=== PATIENT | male | born 1975 | race Two or more races ===

== ENCOUNTER 2020-07-10 01:22 | Emergency (ER) | payer SELFPAY ==
[~2020-07-10] VITALS: Ht 182.9 cm; Wt 102.1 kg
[2020-07-10 06:01] VITALS: BP 120/86
== END 2020-07-10 06:11 | disposition home or self-care (01) ==
LOC: ER 01:22
DX: L30.9 Dermatitis, unspecified (principal); Z88.1 Allergy status to other antibiotic agents

== ENCOUNTER 2024-08-06 19:41 | Emergency (ER) | payer BC, OTHER ==
[~2024-08-06] VITALS: Ht 182.9 cm; Wt 98.5 kg
[2024-08-06 19:51] VITALS: BP 141/89; PULSE 94; RESP 18; TEMP 98.2; O2SAT 97
[2024-08-06] MEDS ORDERED: CLIN1CAP70 PO (19:55)
[2024-08-06] MEDS ORDERED: ACET500T58 PO (19:55)
--- NOTE | 2024-08-06 19:55 | ED.PDOC ---
Eye-HPI HPI Comments 48-year-old male presents to ER with complaints of sore throat x 2 days. Patient reports that he has been experiencing 7/10 sore throat pain x2 days. Denies use of medications for current symptoms and presents to ER ambulatory on arrival, steady gait, in no distress. Denies fever, cough, difficulty swallowing, nausea/vomiting, shortness of breath or any further symptoms/complaints Chief Complaint: Sore Throat Time Seen by MD: 19:43 Primary Care Provider: MAHESHK Reviewed Notes: Nurses Notes, Medications, Allergies Allergies: Coded Allergies: Amoxicillin (Verified Allergy, Unknown, 07/10/20) Home Meds Active Scripts Acetaminophen (Acetaminophen) 500 Mg Tab, 500 MG PO Q4HPRN, #30 TAB 0 Refills Prov:MICHAEL SENIOR 08/06/24 Clindamycin Hcl (Clindamycin Hcl) 300 Mg Cap, 1 CAP PO QID for 7 Days, #28 CAP 0 Refills Prov:MICHAEL SENIOR 08/06/24 Information Source: Patient Past Medical History PAST MEDICAL HISTORY: Denies Surgical History: Denies all surgeries Family History Family History: Unknown Social History Smoker: Non-Smoker Alcohol: Denies ETOH Use Drugs: Denies Drug Use Lives In: Home Constitutional: denies: chills, diaphoresis, fatigue, fever, malaise, sweats, weakness, others EENTM: reports: others (As stated in HPI) Respiratory: denies: cough, hemoptysis, orthopnea, SOB at rest, shortness of breath, SOB with excertion, stridor, wheezing, others Cardiovascular: denies: chest pain, dizzy spells, diaphoresis, Dyspnea on exertion, edema, irregular heart beat, left arm pain, lightheadedness, palpitations, PND, syncope, others Gastrointestinal: denies: abdomen distended, abdominal pain, blood streaked bowels, constipated, diarrhea, dysphagia, difficulty swallowing, hematemesis, melena, nausea, poor appetite, poor fluid intake, rectal bleeding, rectal pain, vomiting, others Genitourinary: denies: burning, dysuria, flank pain, frequency, hematuria, incontinence, penile discharge, penile sore, pain, testicle pain, testicle swelling, urgency, others Neurological: denies: dizziness, fainting, headache, left sided numbness, left sided weakness, numbness, paresthesia, pre-existing deficit, right sided numbness, right sided weakness, seizure, speech problems, tingling, tremors, weakness, others Musculoskeletal: denies: back pain, gout, joint pain, joint swelling, muscle pain, muscle stiffness, neck pain, others Integumetry: denies: bruises, change in color, change in hair/nails, dryness, laceration, lesions, lumps, rash, wounds, others Allergic/Immunocompromised: denies: Difficulty Healing, Frequent Infections, Hives, Itching, others Hematologic/Lymphatic: denies: anemia, blood clots, easy bleeding, easy bruising, swollen glands, others Endocrine: denies: excessive hunger, excessive sweating, excessive thirst, excessive urination, flushing, intolerance to cold, intolerance to heat, unexplained weight gain, unexplained weight loss, others Psychiatric: denies: anxiety, bipolar disorder, depression, hopeless, panic disorder, schizophrenia, sleepless, suicidal, others Physical Exam General Appearance: No Apparent Distress HEENT: PERRL/EOMI, Pharyngeal Erythema (Mild tonsillar swelling/erythema noted bilaterally without exudates. Uvula-normal), TMs Normal Neck: Full Range of Motion, Non-Tender, Normal Respiratory: Chest Non-Tender, Lungs Clear, No Accessory Muscle Use, No Respiratory Distress, Normal Breath Sounds Cardiovascular: No Murmur, No Gallop, Regular Rate/Rhythm Breast Exam: Deferred Gastrointestinal: NOT DONE Genitalia: Deferred Pelvic: Deferred Rectal: Deferred Extremities: Normal capillary refill, Normal range of motion Neurologic: Alert, No Motor Deficits, Normal Affect, Normal Mood, No Sensory Deficits Cerebellar Function: Normal Reflexes: Normal Skin: Dry, Normal Color, Warm Lymphatic: No Adenopathy Was a procedure done? Was a procedure done?: No Sedation Sedation?: No EENT DIFF Eye: N/A Sore Throat: Epiglottitis, Mononeucleosis, Peritonsillar Abscess, URI X-Ray, Labs, Meds, VS Vital Signs Date Time Temp Pulse Resp B/P (MAP) Pulse Ox O2 Delivery O2 Flow Rate FiO2 08/06/24 19:51 98.2 94 18 141/89 (106) 97 98.2 Patient tolerating p.o. intake well and in no distress during ER visit/ prior to discharge Advised to drink plenty of fluids Advised to follow up with PCP in 1-2 days Patient verbalized understanding and agreeable with current plan of care Advised to return to ER immediately if symptoms worsen Time of 1ST Reevaluation: 19:24 Reevaluation 1ST: N/A Patient Education/Counseling: Diagnosis, Treatment, Prognosis, Need For Follow Up Family Education/Counseling: No Family Present SEPSIS Sepsis Screen Vital Signs Date Time Temp Pulse Resp B/P (MAP) Pulse Ox O2 Delivery O2 Flow Rate FiO2 08/06/24 19:51 98.2 94 18 141/89 (106) 97 98.2 Departure 1 Departure Time of Disposition: 19:52 Impression: Primary Impression: Acute tonsillitis Qualified Codes: J03.90 - Acute tonsillitis, unspecified Disposition: 01 HOME / SELF CARE / HOMELESS Condition: Stable e-Prescriptions Acetaminophen (Acetaminophen) 500 Mg Tab 500 MG PO Q4HPRN, #30 TAB 0 Refills Prov: MICHAEL SENIOR 08/06/24 Clindamycin Hcl (Clindamycin Hcl) 300 Mg Cap 1 CAP PO QID for 7 Days, #28 CAP 0 Refills Prov: MICHAEL SENIOR 08/06/24 Discharged With: Self Critical Care Note Critical Care Time?: No Stability Stability form required: No Heart Score Heart Score: Heart Score Response (Comments) Value History N/A 0 EKG N/A 0 Age N/A 0 Risk Factors N/A 0 Troponin N/A 0 Total 0 MICHAEL SENIOR Aug 06, 2024 19:55
== END 2024-08-06 22:10 | disposition home or self-care (01) ==
LOC: ER 19:41
DX: J03.90 Acute tonsillitis, unspecified (principal); Z88.0 Allergy status to penicillin